=== PATIENT | female | born 1985 | race Caucasian/White ===

== ENCOUNTER 2019-07-05 11:48 | Emergency (ER) | payer BC ==
[2019-07-05 12:33] VITALS: BP 138/75
--- NOTE | 2019-07-05 12:51 | UC ---
FLU HPI - HPI Summary HPI Summary: 33 yo female presents with flu-like symptoms. She tells me that on 07/01 she developed sinus congestion and a scratchy throat. Yesterday and today has been feeling feverish. Has been taking OTC cold medicine with good relief. Her son was dx'd with strep yesterday and son's friend has the flu too -- pt is requesting to be checked for both. She did get a flu shot this year. Denies rash , SOB, abdominal pain, n/v/d, dysuria - History of Current Complaint Chief Complaint: UCRespiratory Stated Complaint: SORE THROAT Time Seen by Provider: 07/05/19 12:35 Hx Obtained From: Patient Hx Last Menstrual Period: last week Onset/Duration: Gradual Onset Severity Currently: Mild Severity Initially: Mild Pain Intensity: 4 Pain Scale Used: 0-10 Numeric - Allergy/Home Medications Allergies/Adverse Reactions: Allergies Allergy/AdvReac Type Severity Reaction Status Date / Time environmental Allergy Congestion Uncoded 07/05/19 12:33 Home Medications: Home Medications B-Complex with Vitamin C [B-Complex Plus Vitamin C] 1 tab PO DAILY 07/05/19 [ History Confirmed 07/05/19] Cholecalciferol (Vitamin D3) [Vitamin D3] 1 tab PO DAILY 07/05/19 [History Confirmed 07/05/19] Ethinyl Estradiol/Drospirenone [Loryna 3 mg-0.02 mg Tablet] 1 tab PO DAILY 07/05 [History Confirmed 07/05/19] Fluoxetine HCl 1 tab PO DAILY 07/05/19 [History Confirmed 07/05/19] Heparin 10 Unit/10 ml (1/ml) 10,000 unit .SEE ORDER ONCE PRN 07/05/19 [History Confirmed 07/05/19] Ibuprofen/Pseudoephedrine HCl [Advil Cold & Sinus Caplet] 1 tab PO ONCE PRN [History Confirmed 07/05/19] Lidocaine 1% INJ* [Xylocaine 1%*] 8 ml .SEE ORDER ONCE PRN 07/05/19 [History Confirmed 07/05/19] Magnesium Oxide [Magnesium] 1 tab PO DAILY 07/05/19 [History Confirmed 07/05/19] Sodium Bicarbonate 8.4% VIAL* 3 ml .SEE ORDER ONCE PRN 07/05/19 [History Confirmed 07/05/19] buPROPion HCl [Bupropion Xl] 1 tab PO DAILY 07/05/19 [History Confirmed 07/05/19 ] hydrOXYzine HCL [Hydroxyzine HCl] 1 tab PO DAILY 07/05/19 [History Confirmed ] PMH/Surg Hx/FS Hx/Imm Hx Psychological History: Anxiety, Depression - Surgical History Surgical History: Yes Surgery Procedure, Year, and Place: reconstructive surgery - Family History Known Family History: Positive: Non-Contributory - Social History Occupation: Employed Full-time Lives: With Family Alcohol Use: None Substance Use Type: None Smoking Status (MU): Never Smoked Tobacco Review of Systems All Other Systems Reviewed And Are Negative: No Constitutional: Positive: Negative Skin: Positive: Negative Eyes: Positive: Negative ENT: Positive: Sore Throat, Nasal Discharge Respiratory: Positive: Negative Cardiovascular: Positive: Negative Gastrointestinal: Positive: Negative Physical Exam - Summary Physical Exam Summary: GENERAL: NAD. WDWN. No pain distress. SKIN: No rashes, sores, lesions, or open wounds. HEENT: Head: AT/NC Eyes: EOM intact. Conjunctiva clear without inflammation or discharge. Ears: Hearing grossly normal. TMs intact, no bulging, erythema, or edema. Nose: Nasal mucosa pink and moist. NTTP maxillary and frontal sinus. Throat: Posterior oropharynx without exudates, erythema, or tonsillar enlargement. Uvula midline. NECK: Supple. Nontender. No lymphadenopathy. CHEST: CTAB. No r/r/w. No accessory muscle use. Breathing comfortably and in no distress. CV: RRR. Pulses intact. Cap refill <2seconds NEURO: Alert. PSYCH: Age appropriate behavior. Triage Information Reviewed: Yes Vital Signs: Initial Vital Signs Temp 97.5 F 07/05/19 12:29 Pulse 78 07/05/19 12:29 Resp 18 07/05/19 12:29 BP 138/75 07/05/19 12:29 Pulse Ox 100 07/05/19 12:29 Laboratory Tests 07/05/19 07/05/19 12:47 12:52 Influenza A (Rapid) Negative Influenza B (Rapid) Negative Group A Strep Rapid Negative Vital Signs Reviewed: Yes Flu Course/Dx - Course Course Of Treatment: POC strep and flu negative. Exam WNL. Suspect viral illness - advised to continue OTC supportive care and recheck if symptoms do not improve - Differential Dx/Diagnosis Provider Diagnosis: Viral syndrome Discharge ED - Sign-Out/Discharge Documenting (check all that apply): Patient Departure All imaging exams completed and their final reports reviewed: No Studies - Discharge Plan Condition: Stable Disposition: HOME Patient Education Materials: Viral Syndrome (ED) Referrals: Sneha Schultz PA [Primary Care Provider] - Additional Instructions: STREP AND FLU NEGATIVE TODAY Your symptoms are likely from a viral infection. Viral infections do not respond to antibiotics and are limited to the treatment of symptoms. Viral infections typically run their course in 7-10 days. Drink plenty of fluids, especially if you are running any fever. Use salt water gargles several times a day. Take over the counter acetaminophen (Tylenol) or ibuprofen (Advil, Motrin) according to directions as needed for pain or fever. You may also use Chloraseptic spray or Cepacol lonzenges according to directions which contain a numbing medication and can provide some temporary relief from a sore throat. Return here or follow up with your primary care provider in 7 days if symptoms persist. - Billing Disposition and Condition Condition: STABLE Disposition: Home
[2019-07-05 13:03] LABS: Influenza A Molecular NEGATIVE (Negative); Influenza B Molecular NEGATIVE (Negative)
== END 2019-07-05 13:07 | disposition home or self-care (01) ==
LOC: UCEAST 11:48
DX: B34.9 Viral infection, unspecified (principal); R09.81 Nasal congestion; J02.9 Acute pharyngitis, unspecified; F41.9 Anxiety disorder, unspecified; R09.89 Other specified symptoms and signs involving the circulatory and respiratory systems; F32.9 Major depressive disorder, single episode, unspecified; Z79.899 Other long term (current) drug therapy; Z91.09 Other allergy status, other than to drugs and biological substances
CPT/HCPCS: 87651; 99211; G0463